=== PATIENT | female | born 1985 | race Two or more races ===

== ENCOUNTER 2017-10-22 07:50 | Day surgery (SDC) | payer BC ==
[~2017-10-22] VITALS: Ht 175.3 cm; Wt 74.4 kg
[~2017-10-22 07:50] MED LIST: ADDERALL XR 1515 MG PO; Motrin PO; VALTREX50 MG/ML PO; VENTOLIN HFA18 GM IH; WELLBUTRIN XL150 MG PO; WELLBUTRIN XL300 MG PO
[2017-10-22 08:26] VITALS: BP 112/65
[2017-10-22 15:10] VITALS: BP 107/56
[2017-10-22 16:17] VITALS: BP 94/50
[2017-10-22 17:50] VITALS: BP 110/53
== END 2017-10-22 17:58 | disposition home or self-care (01) ==
LOC: SDC 07:50
PROVIDERS: Podiatrist Foot & Ankle Surgery
DX: M20.11 Hallux valgus (acquired), right foot (principal); M21.621 Bunionette of right foot; M21.6X1 Other acquired deformities of right foot; M24.571 Contracture, right ankle; M77.31 Calcaneal spur, right foot; M92.61 Juvenile osteochondrosis of tarsus, right ankle; J45.909 Unspecified asthma, uncomplicated; F41.8 Other specified anxiety disorders; Z87.891 Personal history of nicotine dependence
CPT/HCPCS: 73630; 76000; 81025; C1713; J0131; J0690; J1100; J1885; J2250; J2300; J2405; J2765; J2795; J3010; J3475; S0020